=== PATIENT | female | born 1975 | race Caucasian/White ===

== ENCOUNTER 2016-10-06 18:47 | Emergency (ER) | payer MEDICARE | END 2016-10-06 19:39 | disposition home or self-care (01) | LOC: ER 18:47 | DX: I88.9 Nonspecific lymphadenitis, unspecified (principal); L73.9 Follicular disorder, unspecified; F17.210 Nicotine dependence, cigarettes, uncomplicated; Z90.49 Acquired absence of other specified parts of digestive tract ==